=== PATIENT | female | born 1955 | race Caucasian/White ===

== ENCOUNTER 2017-11-11 20:46 | Emergency (ER) | payer OTHER ==
[2017-11-11 21:57] LABS: ADD MAN DIFF? NO
[2017-11-11 22:02] LABS: WHITE BLOOD COUNT 7.1 10^3/ul (4.8-10.8)
[2017-11-11 22:02] LABS: BASOPHILS % 0.6 % (0.0-2.0); EOSINOPHILS # 0.2 10^3/ul (0.0-0.5); EOSINOPHILS % 2.6 % (0.0-7.0); HEMATOCRIT 38.7 % (37.0-47.0); HEMOGLOBIN 12.6 g/dl (12.0-16.0); LYMPHOCYTES # 3.2 10^3/ul (0.8-2.9); MEAN CORPUSCULAR HEMOGLOBIN 29.7 pg (29.0-33.0); MEAN CORPUSCULAR HGB CONC 32.6 g/dl (32.0-37.0); MEAN CORPUSCULAR VOLUME 91.3 fl (82.0-101.0); MEAN PLATELET VOLUME 11.2 fl (7.4-10.4); MONOCYTE # 0.7 10^3/ul (0.3-0.9); MONOCYTES % 9.6 % (0.0-11.0); NEUTROPHIL # 2.9 10^3/ul (1.6-7.5); NEUTROPHILS % 40.9 % (39.0-77.0); PLATELET COUNT 241 10^3/UL (140-415); RED BLOOD COUNT 4.24 10^6/ul (4.20-5.40); RED CELL DISTRIBUTION WIDTH 14.1 % (11.5-14.5)
[2017-11-11 22:21] LABS: INR 0.95; PROTIME 12.8 Sec (11.9-14.9)
[2017-11-11 22:22] LABS: PARTIAL THROMBOPLASTIN TIME 28.9 Sec (25.0-35.0)
[2017-11-11 22:32] LABS: ALANINE AMINOTRANSFERASE 38 IU/L (13-69); ALBUMIN 4.2 g/dl (3.3-4.9); ALKALINE PHOSPHATASE 82 IU/L (42-121); ANION GAP 9 (8-16); ASPARTATE AMINO TRANSFERASE 88 IU/L (15-46); BILIRUBIN,INDIRECT 0.3 mg/dl (0-1.1); BILIRUBIN,TOTAL 0.3 mg/dl (0.2-1.3); BLOOD UREA NITROGEN 18 mg/dl (7-20); CALCIUM 9.3 mg/dl (8.4-10.2); CARBON DIOXIDE 33 mmol/L (21-31); CHLORIDE 103 mmol/L (97-110); CREATININE 0.81 mg/dl (0.44-1.00); GLUCOSE 94 mg/dl (70-220); POTASSIUM 3.9 mmol/L (3.5-5.1); SODIUM 141 mmol/L (135-144); TOTAL PROTEIN 7.7 g/dl (6.1-8.1)
[2017-11-11 22:40] LABS: LACTIC ACID 0.9 mmol/L (0.5-2.0)
[2017-11-11 22:44] LABS: TROPONIN-I < 0.010 ng/ml (0.000-0.120)
[2017-11-11] MEDS: PIPER-TAZO 3.375 GM IV (PMX) 100 ML IVPB (22:54)
[2017-11-12 00:13] LABS: LACTIC ACID < 0.5 mmol/L (0.5-2.0)
== END 2017-11-12 00:25 | disposition home or self-care (01) ==
LOC: E/R 11-12 00:25
DX: L03.115 Cellulitis of right lower limb (principal); I73.9 Peripheral vascular disease, unspecified; R07.9 Chest pain, unspecified
CPT/HCPCS: 36415; 71045; 73630; 80053; 83605; 84484; 85025; 85610; 85730; 87040; 93005; 93971; 96374; 99285-25

== ENCOUNTER 2018-12-24 11:57 | Emergency (ER) | payer OTHER | END 2018-12-24 14:27 | disposition home or self-care (01) | LOC: E/R 11:57 | DX: R60.0 Localized edema (principal); I80.02 Phlebitis and thrombophlebitis of superficial vessels of left lower extremity; R40.2142 Coma scale, eyes open, spontaneous, at arrival to emergency department; R40.2362 Coma scale, best motor response, obeys commands, at arrival to emergency department; R40.2252 Coma scale, best verbal response, oriented, at arrival to emergency department; Z79.82 Long term (current) use of aspirin | CPT/HCPCS: 73610; 93971; 99284-25 ==

== ENCOUNTER 2019-01-04 07:24 | Day surgery (SDC) | payer OTHER ==
[2019-01-04] MEDS ORDERED: LIDOCAINE 2% (SDV) 5 ML INJ (11:32)
[2019-01-04] MEDS ORDERED: PROPOFOL 40 ML (11:32)
== END 2019-01-04 14:07 | disposition home or self-care (01) ==
LOC: GIL 07:24
DX: R19.5 Other fecal abnormalities (principal); D12.2 Benign neoplasm of ascending colon; K64.8 Other hemorrhoids
CPT/HCPCS: 45380; 88305